=== PATIENT | male | born 2005 | race Caucasian/White ===

== ENCOUNTER 2024-03-31 14:54 | Emergency (ER) | payer OTHER, SELFPAY ==
[2024-03-31 15:04] VITALS: BP 115/84
[2024-03-31] MEDS: OMNIPAQUE 50 ML PO (15:18)
[2024-03-31] MEDS: MOTRIN 600 MG PO (15:18)
--- NOTE | 2024-03-31 15:47 | ED.GENMED ---
ED Provider Triage
<Delvis Fox PA-C - Last Filed: 03/31/24 15:48>
-
Patient seen by provider in Triage?: Seen in Triage
18-year-old male presents in referral from urgent care for evaluation of lower abdominal pain. He notes progressively worsening lower abdominal pain over the past 3 days with decreased appetite. No vomiting no diarrhea. Urgent care concern about
appendicitis. No prior surgical history. He is healthy otherwise
Patient appears stable nontoxic through triage. Does note some discomfort to the lower abdomen. Vital signs are stable. Will initiate workup with CBC CMP lipase. CT with oral and IV contrast of the abdomen and pelvis pending
Patient received medical screening evaluation with by healthcare provider through triage. Would benefit from further evaluation
History of Present Illness
<Delvis Fox PA-C - Last Filed: 03/31/24 15:48>
General
Chief Complaint: Abdominal Pain
Time Seen by Provider: 03/31/24 17:16
<Seun Chairez PA-C - Last Filed: 03/31/24 22:55>
History of Present Illness
History of Present Illness:
18-year-old male presents to the emergency department for evaluation of generalized lower abdominal cramping and diarrhea for the past 3 to 4 days. Denies any fevers or vomiting, still has an appetite. No suspicious food intake recently. Denies
any bloody diarrhea. No ill contacts at home. No recent international travel or antibiotic use
Review of Systems
<Seun Chairez PA-C - Last Filed: 03/31/24 22:55>
Review of Systems
Allergies reviewed?: Yes
All Other Systems: ROS reviewed and negative except as documented in HPI and ROS
Phy Exam
<Seun Chairez PA-C - Last Filed: 03/31/24 22:55>
Physical Exam
Physical Exam:
GEN: Well appearing, NAD, WDWN
HEENT: Oral mucosa moist, no scleral icterus
Cardiac: Regular rate
Lung: No respiratory distress, no tachypnea
Abdomen: Soft, no significantly reproducible tenderness, no rigidity
MSK: No gross deformity or injuries
Skin: Good color, no pallor or jaundice, no rashes
Neuro: AO x3, moves all extremities freely
Psych: Calm, cooperative
Course
<Delvis Fox PA-C - Last Filed: 03/31/24 15:48>
Orders/Labs/Results
Orders:
Orders
03/31/24 15:10
CT Abd/pel W Iv And Oral Contr Urgent
Comment:
Reason For Exam: lower abdominal pain
Iohexol [Omnipaque] See Protocol PO NOW STA
03/31/24 15:11
Ibuprofen [Motrin] 600 mg PO NOW STA
03/31/24 17:33
Complete Blood Count/With Diff Urgent
Comprehensive Metabolic Panel Urgent
Lipase Urgent
Abnormal Lab Results
03/31/24
17:33
Absolute Lymphs (auto) 0.9 L 10^3/uL
(1.2-3.4)
Absolute Monos (auto) 0.9 H 10^3/uL
(0.1-0.6)
Lymphocytes % 13.8 L %
(20.5-51.1)
Monocytes % 14.7 H %
(1.7-9.3)
Glucose 105 H mg/dl
(70-99)
03/31/24 17:33
03/31/24 17:33
Vital Signs
Initial and Last Documented VS:
Initial Vital Signs
Temp Pulse Resp BP Pulse Ox
98.9 F 85 18 115/84 100
03/31/24 15:04 03/31/24 15:04 03/31/24 15:04 03/31/24 15:04 03/31/24 15:04
Last Documented Vital Signs
Temp Pulse Resp BP Pulse Ox
98.9 F 85 18 123/75 97
03/31/24 15:04 03/31/24 15:04 03/31/24 15:04 03/31/24 19:04 03/31/24 19:30
<Seun Chairez PA-C - Last Filed: 03/31/24 22:55>
Orders/Labs/Results
Orders:
Orders
03/31/24 15:10
CT Abd/pel W Iv And Oral Contr Urgent
Comment:
Reason For Exam: lower abdominal pain
Iohexol [Omnipaque] See Protocol PO NOW STA
03/31/24 15:11
Ibuprofen [Motrin] 600 mg PO NOW STA
03/31/24 17:33
Complete Blood Count/With Diff Urgent
Comprehensive Metabolic Panel Urgent
Lipase Urgent
Abnormal Lab Results
03/31/24
17:33
Absolute Lymphs (auto) 0.9 L 10^3/uL
(1.2-3.4)
Absolute Monos (auto) 0.9 H 10^3/uL
(0.1-0.6)
Lymphocytes % 13.8 L %
(20.5-51.1)
Monocytes % 14.7 H %
(1.7-9.3)
Glucose 105 H mg/dl
(70-99)
03/31/24 17:33
03/31/24 17:33
Vital Signs
Initial and Last Documented VS:
Initial Vital Signs
Temp Pulse Resp BP Pulse Ox
98.9 F 85 18 115/84 100
03/31/24 15:04 03/31/24 15:04 03/31/24 15:04 03/31/24 15:04 03/31/24 15:04
Last Documented Vital Signs
Temp Pulse Resp BP Pulse Ox
98.9 F 85 18 123/75 97
03/31/24 15:04 03/31/24 15:04 03/31/24 15:04 03/31/24 19:04 03/31/24 19:30
<Seun Chairez PA-C - Last Filed: 03/31/24 22:55>
MDM/Problems Addressed
MDM/Problems Addressed:
Imaging reveals pancolitis. He is clinically stable with a benign abdomen and normal labs thus suitable for outpatient management. Was unable to provide stool specimen in the ED thus will be sent home with instructions to collect stool specimen
prior to initiation of antibiotics.
<Seun Chairez PA-C - Last Filed: 03/31/24 22:55>
*Critical Care Note
Total Time (30-74mins, 75-104mins- exclusive of procedures): Not Applicable
ED Attending Note
<Delvis Fox PA-C - Last Filed: 03/31/24 15:48>
-
Portions of this chart may have been created with voice recognition software.� Occasional wrong word or��sound alike� substitutions may have occurred due to the inherent limitations of voice recognition software.
Discharge Plan
Departure
Patient Disposition: Home (Routine Discharge)
Date of Disposition: 03/31/24
Time of Disposition: 19:24
Patient with high blood pressure during this ER visit?: No
Discharge Problem:
Colitis
Instructions: Colitis (DC)
Prescriptions:
New
amoxicillin-pot clavulanate 875-125 mg tablet
1 tab PO BID Qty: 20 0RF
Referrals:
Jai Simmons, DO [Family Provider] -
Activity Restrictions/Additional Instructions:
Collect stool specimen prior to initiating antibiotic
Did collect a stool specimen during office hours see on the container and return to the hospital or wellness center outpatient lab the following day
Interventions
Interventions:
*Risk Screen - Suicide Last Done: 03/31/24 15:04
*General Assessment Last Done: 03/31/24 15:04
*Neglect/Abuse Screening Last Done: 03/31/24 15:04
ED- Fall Risk Assessment Last Done: 03/31/24 17:30
*ED COVID-19 Vaccine History Last Done: 03/31/24 17:30
*Nursing Disposition Last Done: 03/31/24 19:36
WR-[id number] Assessment Last Done: 03/31/24 17:30
Discharge Date and Time
Discharge Date/Time: 03/31/24 19:37
Print Language: MARSHALLESE
[2024-03-31 17:34] VITALS: BP 116/71
[2024-03-31 17:37] VITALS: BMI 24.0
[2024-03-31 17:48] LABS: % Basophils 0.2 % (0-2); % Immature Granulocytes 0.3 % (0-0.5); % Lymphocytes 13.8 % (20.5-51.1); % Monocytes 14.7 % (1.7-9.3); Absolute Lymphocytes 0.9 10^3/uL (1.2-3.4); Absolute Monocytes 0.9 10^3/uL (0.1-0.6); Absolute Neutrophils 4.6 10^3/uL (1.4-6.5); Hematocrit 44.2 % (39.0-52.0); Mean Corp Hgb Conc. 36.2 g/dL (33.0-37.0); Mean Corpuscular Hgb 29.1 pg (27.0-31.0); Mean Corpuscular Volume 80.5 fL (80.0-94.0); Mean Platelet Volume 8.8 fL (7.4-10.4); Nucleated Red Blood Cells % 0 % (-); Platelet Count 178 10^3/uL (130-400); Red Blood Cell Count 5.49 10^6/uL (4.70-6.10); Red Cell Dist. Width 12.9 % (11.5-14.5); White Blood Cell Count 6.4 10^3/uL (4.8-10.8)
[2024-03-31 17:56] LABS: ALT (SGPT) 20 U/L (0-50); AST (SGOT) 26 U/L (17-59); Albumin 4.5 g/dl (3.5-5.0); Alkaline Phosphatase 62 U/L (38-126); Blood Urea Nitrogen 14 mg/dl (9-20); Calcium 9.8 mg/dl (8.4-10.2); Carbon Dioxide 26 mmol/L (22-30); Chloride 98 mmol/L (98-107); Estimated Creatinine Clearance 111 ml/min; Glucose 105 mg/dl (70-99); Lipase 63 U/L (23-300); Potassium 4.4 mmol/L (3.5-5.1); Sodium 135 mmol/L (135-145); Total Bilirubin 0.8 mg/dl (0.2-1.3); Total Protein 6.8 g/dl (6.3-8.2); eGFR > 60.00
[2024-03-31 18:00] VITALS: BP 111/66
[2024-03-31 19:04] VITALS: BP 123/75
== END 2024-03-31 19:37 | disposition home or self-care (01) ==
LOC: EMR 14:54
PROVIDERS: EMERGENCY PHYSICIAN Emergency Medicine; FAMILY PHYSICIAN Internal Medicine
DX: K52.9 Noninfective gastroenteritis and colitis, unspecified (principal)
CPT/HCPCS: 99284; 74177; 80053; 83690; 85025; Q9967

== ENCOUNTER → 2024-04-01 08:46 | Outpatient (REF) | payer OTHER, SELFPAY | LOC: RAD 08:46 | PROVIDERS: ATTENDING PHYSICIAN Physician Assistant | DX: K52.9 Noninfective gastroenteritis and colitis, unspecified (principal) | CPT/HCPCS: 87045; 87046; 87077; 87186; 87427 ==